=== PATIENT | male | born 1990 | race Hispanic/Latino ===

== ENCOUNTER 2017-01-04 20:40 | Emergency (ER) | payer OTHER ==
[~2017-01-04] VITALS: Ht 193 cm; Wt 107.4 kg
[2017-01-04] MEDS ORDERED: ZOFRAN4 MG PO (23:20)
[2017-01-04] MEDS ORDERED: MOTRIN600 MG PO (23:20)
[2017-01-04 23:42] VITALS: BP 154/89
== END 2017-01-04 23:43 | disposition home or self-care (01) ==
LOC: EME 20:40 → RME 20:40
DX: S06.0X1A Concussion with loss of consciousness of 30 minutes or less, initial encounter (principal); S00.01XA Abrasion of scalp, initial encounter; W01.10XA Fall on same level from slipping, tripping and stumbling with subsequent striking against unspecified object, initial encounter; Y92.511 Restaurant or cafe as the place of occurrence of the external cause
CPT/HCPCS: 70450; 99281; 99283